=== PATIENT | female | born 1940 | race Caucasian/White ===

== ENCOUNTER → 2016-06-19 | Outpatient (CLI) | payer OTHER, MEDICARE ==
[~2016-06-19] VITALS: Ht 156.2 cm; Wt 58.1 kg
[~2016-06-19] MED LIST: ASPIRIN81 M1 PO; ATORVASTATIN CA20 MG PO; BYSTOLIC10 MG PO; CALCIUM 600 +1 EAC5 PO; CENTRUM SILVER1 EAC3 PO; CLOPIDOGREL75 MG PO; CYANOCOBALAM1000 MCG PO; Ecotrin PO; FISH OIL CONC1 EACH PO; GINKGO BILOBA60 M1 PO; LEVOTHYROXINE75 MCG PO; LIPITOR40 MG PO; LOPRESSOR50 MG PO; Lipitor PO; Lopressor PO; TIROSINT88 MCG PO
== END | disposition home or self-care (01) ==
LOC: AMB 11:44
PROC: 0DJD8ZZ Inspection of Lower Intestinal Tract, Via Natural or Artificial Opening Endoscopic (ICD-10-PCS; principal; 2016-06-19)
DX: Z12.11 Encounter for screening for malignant neoplasm of colon (principal); K57.90 Diverticulosis of intestine, part unspecified, without perforation or abscess without bleeding; K64.8 Other hemorrhoids; I10 Essential (primary) hypertension; E03.9 Hypothyroidism, unspecified; Z86.73 Personal history of transient ischemic attack (TIA), and cerebral infarction without residual deficits
CPT/HCPCS: 93005; J3010